=== PATIENT | male | born 1980 | race Caucasian/White ===

== ENCOUNTER 2017-11-27 11:35 | Day surgery (SDC) | payer MEDICARE, OTHER ==
[2017-11-27 14:03] LABS: BASO # 0.1 10^3/uL (0.0-0.2); BASO % 0.6 % (0.0-1.0); EOS % 0.4 % (0.0-3.0); HEMATOCRIT 45.1 % (42.0-52.0); HEMOGLOBIN 15.6 g/dl (13.5-17.5); IMMATURE GRANULOCYTE % 0.3 % (0-3.0); LYMPH # 1.7 10^3/uL (1.5-4.5); LYMPH % 19.2 % (24.0-44.0); MEAN CORPUSCULAR HEMOGLOBIN 29.7 pg (27.0-33.0); MEAN CORPUSCULAR HGB CONC 34.6 g/dl (32.0-36.5); MEAN CORPUSCULAR VOLUME 85.7 fl (80.0-96.0); MONO # 0.6 10^3/uL (0.0-0.8); NEUTROPHILS # 6.5 10^3/uL (1.8-7.7); NEUTROPHILS % 72.5 % (36.0-66.0); PLATELET COUNT, AUTOMATED 180 10^3/uL (150-450); RED BLOOD COUNT 5.26 10^6/uL (4.30-6.10); RED CELL DISTRIBUTION WIDTH 13.2 % (11.5-14.5); WHITE BLOOD COUNT 8.9 10^3/uL (4.0-10.0)
[2017-11-27] MEDS: NS 1,000 ML IV ×3 (14:06)
[2017-11-27 14:13] LABS: INR 0.96; PROTHROMBIN TIME 12.8 SECONDS (12.4-14.5)
[2017-11-27 14:14] LABS: PARTIAL THROMBOPLASTIN TIME 26.1 SECONDS (26.8-37.9)
[2017-11-27 14:37] LABS: ANION GAP 4 MEQ/L (8-16); BLOOD UREA NITROGEN 13 MG/DL (7-18); C REACTIVE PROTEIN QUANTITATIV < 0.30 MG/DL (0.00-0.30); CALCIUM LEVEL 9.7 MG/DL (8.5-10.1); CARBON DIOXIDE LEVEL 30 MEQ/L (21-32); CHLORIDE LEVEL 106 MEQ/L (98-107); CREATININE FOR GFR 0.93 MG/DL (0.70-1.30); GLOMERULAR FILTRATION RATE > 60.0 (>60); GLUCOSE, FASTING 90 MG/DL (70-100); POTASSIUM SERUM 3.6 MEQ/L (3.5-5.1); SODIUM LEVEL 140 MEQ/L (136-145)
[2017-11-27] MEDS: CEFAZOLIN SOD 1 GM in APPROPRIATE DILUENT 1 EA IV ×3 (15:14)
[2017-11-27] MEDS ORDERED: LIDOCAINE 2% INJ 100 MG/5 ML SDV (FOR ANES.) As Ordered ×3 (19:48)
[2017-11-27] MEDS ORDERED: MIDAZOLAM INJ 2 MG/2 ML VIAL (J2250) As Ordered ×3 (19:48)
[2017-11-27] MEDS ORDERED: PROPOFOL 200 MG/20 ML VIAL As Ordered ×12 (19:48→20:51)
[2017-11-27] MEDS ORDERED: fentaNYL 100 MCG/2 ML INJECTION (J3010) As Ordered ×3 (19:49)
[2017-11-27] MEDS: LIDOCAINE 2% MDV 20 ML VIAL As Ordered ×3 (20:46)
[2017-11-27] MEDS: BUPIVACAINE HCL 0.5% 30 ML VIAL As Ordered ×3 (20:46)
[2017-11-27] MEDS: GENTAMICIN SULF INJ 80MG/2ML VIAL (J1580) As Ordered ×3 (21:00)
[2017-11-27] MEDS ORDERED: ONDANSETRON 4MG/2ML VIAL (J2405) IV ×3 (22:00)
[2017-11-27] MEDS ORDERED: LR 1,000 ML IV ×3 (22:00)
[2017-11-27] MEDS ORDERED: fentaNYL 100 MCG/2 ML INJECTION (J3010) IV ×3 (22:00)
[2017-11-27] MEDS ORDERED: METOCLOPRAMIDE INJ 10MG/2ML VIAL (J2765) IV ×3 (22:00)
[2017-11-27] MEDS: PERCOCET 5MG/325MG TAB PO ×3 (22:15)
== END 2017-11-27 22:35 | disposition home or self-care (01) ==
LOC: M SDC 22:35 → M ED 11:35 → M SDC 19:30
DX: S91.301A Unspecified open wound, right foot, initial encounter (principal); Y23 Rifle, shotgun and larger firearm discharge, undetermined intent; W33.02XA Accidental discharge of hunting rifle, initial encounter; Z88.2 Allergy status to sulfonamides; F32.9 Major depressive disorder, single episode, unspecified; R79.1 Abnormal coagulation profile; Y92.89 Other specified places as the place of occurrence of the external cause; Y99.9 Unspecified external cause status; Y93.89 Activity, other specified
CPT/HCPCS: 28192

== ENCOUNTER → 2017-11-27 | Outpatient (CLI) | payer MEDICARE, OTHER | LOC: M LRY 10:41 | DX: M79.671 Pain in right foot (principal); S90.851A Superficial foreign body, right foot, initial encounter; W34.010A Accidental discharge of airgun, initial encounter; X58.XXXA Exposure to other specified factors, initial encounter; Y92.9 Unspecified place or not applicable; Y93.9 Activity, unspecified | CPT/HCPCS: 73630 ==

== ENCOUNTER 2019-05-16 04:20 | Emergency (ER) | payer MEDICARE, OTHER ==
[~2019-05-16] VITALS: Ht 190.5 cm; Wt 100.0 kg
[~2019-05-16 04:20] MED LIST: ADDE20CA3 PO; AMBI6.25 PO; CLON0.5T8 PO; EFFE150C2 PO; HYDR-3719 PO; PRAZ1CAP PO; REQU1TAB14 PO; REQU1TAB16 PO; ZOLP10TA2 PO
[2019-05-16] MEDS ORDERED: CLAR10CA3 PO (04:25)
[2019-05-16 04:59] LABS: BASO # 0.1 10^3/uL (0.0-0.2); BASO % 0.5 % (0.0-1.0); EOS # 0.6 10^3/uL (0.0-0.5); EOS % 5.6 % (0.0-3.0); HEMATOCRIT 44.2 % (42.0-52.0); HEMOGLOBIN 14.9 g/dl (13.5-17.5); LYMPH % 28.7 % (24.0-44.0); MEAN CORPUSCULAR HEMOGLOBIN 29.6 pg (27.0-33.0); MEAN CORPUSCULAR HGB CONC 33.7 g/dl (32.0-36.5); MEAN CORPUSCULAR VOLUME 87.9 fl (80.0-96.0); MONO # 0.8 10^3/uL (0.0-0.8); MONO % 7.2 % (0.0-5.0); NEUTROPHILS % 57.6 % (36.0-66.0); PLATELET COUNT, AUTOMATED 181 10^3/uL (150-450); RED BLOOD COUNT 5.03 10^6/uL (4.30-6.10); WHITE BLOOD COUNT 10.5 10^3/uL (4.0-10.0)
[2019-05-16 05:19] LABS: BLOOD UREA NITROGEN 15 MG/DL (7-18); CALCIUM LEVEL 9.1 MG/DL (8.5-10.1); CARBON DIOXIDE LEVEL 31 MEQ/L (21-32); CHLORIDE LEVEL 105 MEQ/L (98-107); CREATININE FOR GFR 0.95 MG/DL (0.70-1.30); GLOMERULAR FILTRATION RATE > 60.0 (>60); GLUCOSE, FASTING 64 MG/DL (70-100); POTASSIUM SERUM 3.9 MEQ/L (3.5-5.1); SODIUM LEVEL 143 MEQ/L (136-145)
[2019-05-16] MEDS ORDERED: diphenhydrAMINE INJ 50MG/ML VIAL (J1200) IV STA (06:16)
[2019-05-16] MEDS ORDERED: PRED20TA PO (06:21)
[2019-05-16] MEDS ORDERED: BENA25TA5 PO (06:22)
[2019-05-16] MEDS ORDERED: BENA25CA4 PO (06:22)
[2019-05-16] MEDS ORDERED: PEPC1TAB5 PO (06:23)
[2019-05-16] MEDS ORDERED: methylPREDNISolone INJ 125 MG/2 ML VIAL (J2930) IV ONE (06:30)
[2019-05-16] MEDS ORDERED: FAMOTIDINE IV BAG 20 MG in IV 1 EA IV ONE (06:30)
[2019-05-16 07:00] VITALS: BP 128/88
== END 2019-05-16 07:08 | disposition home or self-care (01) ==
LOC: M ED 04:20
DX: S40.262A Insect bite (nonvenomous) of left shoulder, initial encounter (principal); T78.40XA Allergy, unspecified, initial encounter; W57.XXXA Bitten or stung by nonvenomous insect and other nonvenomous arthropods, initial encounter; Y92.9 Unspecified place or not applicable; Y93.9 Activity, unspecified; Y99.9 Unspecified external cause status; F43.10 Post-traumatic stress disorder, unspecified; F41.9 Anxiety disorder, unspecified; F32.9 Major depressive disorder, single episode, unspecified; K21.9 Gastro-esophageal reflux disease without esophagitis; F17.210 Nicotine dependence, cigarettes, uncomplicated; Z79.899 Other long term (current) drug therapy; Z88.2 Allergy status to sulfonamides; Z91.89 Other specified personal risk factors, not elsewhere classified
CPT/HCPCS: 80048; 85025; 94760; 96365; 96375; 99284; J1200; J2930

== ENCOUNTER 2019-06-23 08:09 | Emergency (ER) | payer OTHER, MEDICARE ==
[~2019-06-23] VITALS: Ht 190.5 cm; Wt 104.0 kg
[~2019-06-23 08:09] MED LIST changes: +BENA25CA4 PO; +BENA25TA5 PO; +CLAR10CA3 PO; +PEPC1TAB5 PO; +PRED20TA PO
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
[2019-06-23 09:53] VITALS: BP 126/70
== END 2019-06-23 09:55 | disposition home or self-care (01) ==
LOC: M ED 08:09
DX: S60.011A Contusion of right thumb without damage to nail, initial encounter (principal); S60.111A Contusion of right thumb with damage to nail, initial encounter; W23.0XXA Caught, crushed, jammed, or pinched between moving objects, initial encounter; Y92.099 Unspecified place in other non-institutional residence as the place of occurrence of the external cause; Y93.9 Activity, unspecified; Y99.9 Unspecified external cause status; F12.10 Cannabis abuse, uncomplicated; Z79.899 Other long term (current) drug therapy; Z88.2 Allergy status to sulfonamides; Z91.89 Other specified personal risk factors, not elsewhere classified

== ENCOUNTER 2019-07-07 10:48 | Day surgery (SDC) | payer OTHER, MEDICARE ==
[~2019-07-07] VITALS: Ht 190.5 cm; Wt 101.2 kg
[~2019-07-07 10:48] MED LIST changes: +CLON0.5T2 PO; -CLON0.5T8 PO; +LIDOCAINE 2% INJ 100 MG/5 ML SDV (FOR ANES.) As Ordered ONE; +PROPOFOL 200 MG/20 ML VIAL As Ordered ONE
[2019-07-07] MEDS: NS 1,000 ML IV ONE (11:20)
[2019-07-07] MEDS ORDERED: PROPOFOL 200 MG/20 ML VIAL As Ordered ONE ×2 (12:20→12:32)
--- NOTE | 2019-07-07 12:43 | ROOR ---
Patient Name: Darryl León Procedure Date: 07/07/2019 12:09 PM Date of : 1980 Age: 38 Room: [facility] Gender: Male Note Status: Finalized Procedure: Upper Endoscopy + Biopsies Indications: Epigastric abdominal pain, Diarrhea, Nausea with vomiting Providers: Handy Valadez MD Referring MD: Moises Guzman Md Requesting Provider: Medicines: Monitored Anesthesia Care Complications: No immediate complications. Procedure: Pre-Anesthesia Assessment: - The heart rate, respiratory rate, oxygen saturations, blood pressure, adequacy of pulmonary ventilation, and response to care were monitored throughout the procedure. The Endoscope was introduced through the mouth, and advanced to the second part of duodenum. The upper GI endoscopy was accomplished without difficulty. The patient tolerated the procedure well. Findings: The Z-line was regular and was found 38 cm from the incisors. Multiple biopsies were obtained with cold forceps for evaluation to rule out Rebolledo's Esophagus randomly at the gastroesophageal junction. A small hiatal hernia was present. Diffuse mildly erythematous mucosa without bleeding was found in the stomach. Biopsies were taken with a cold forceps for Helicobacter pylori testing. The exam of the duodenum was otherwise normal. Biopsies for histology were taken with a cold forceps in the first portion of the duodenum for evaluation of celiac disease. The exam was otherwise without abnormality. Impression: - Z-line regular, 38 cm from the incisors. - Small hiatal hernia. - Erythematous mucosa in the stomach. Biopsied. - The examination was otherwise normal. - Multiple biopsies were obtained at the gastroesophageal junction. - Biopsies were taken with a cold forceps for evaluation of celiac disease. - The examination was otherwise normal. Recommendation: - Patient has a contact number available for emergencies. The signs and symptoms of potential delayed complications were discussed with the patient. Return to normal activities tomorrow. Written discharge instructions were provided to the patient. - High fiber diet. - Discharge patient to home. - Continue present medications. - Await pathology results. - Telephone GI clinic for pathology results in 1 week. - Return to referring physician. - The findings and recommendations were discussed with the patient's family. Handy Valadez MD Handy Valadez MD 07/07/2019 12:42:29 PM Electronically signed by Handy Valadez MD Number of Addenda: 0 Note Initiated On: 07/07/2019 12:09 PM Estimated Blood Loss: Estimated blood loss: none.
--- NOTE | 2019-07-07 12:45 | ROOR ---
Patient Name: Darryl León Procedure Date: 07/07/2019 12:10 PM Date of : 1980 Age: 38 Room: [facility] Gender: Male Note Status: Finalized Procedure: Total Colonoscopy to Cecum + ileoscopy + Bx Indications: Lower abdominal pain, Clinically significant diarrhea of unexplained origin Providers: Handy Valadez MD Referring MD: Moises Guzman Md Requesting Provider: Medicines: Monitored Anesthesia Care Complications: No immediate complications. Procedure: Pre-Anesthesia Assessment: - The heart rate, respiratory rate, oxygen saturations, blood pressure, adequacy of pulmonary ventilation, and response to care were monitored throughout the procedure. The Colonoscope was introduced through the anus and advanced to the terminal ileum, with identification of the appendiceal orifice and IC valve. The colonoscopy was performed without difficulty. The patient tolerated the procedure well. The quality of the bowel preparation was excellent. Findings: The perianal and digital rectal examinations were normal. Non-bleeding internal hemorrhoids were found during retroflexion. The hemorrhoids were small and Grade I (internal hemorrhoids that do not prolapse). No other significant abnormalities were identified in a careful examination of the remainder of the colon. Biopsies for histology were taken with a cold forceps from the ascending colon, transverse colon, descending colon and rectosigmoid colon for evaluation of microscopic colitis. The terminal ileum appeared normal. Impression: - Non-bleeding internal hemorrhoids. - The examined portion of the ileum was normal. - Biopsies were taken with a cold forceps from the ascending colon, transverse colon, descending colon and rectosigmoid colon for evaluation of microscopic colitis. - The exam was otherwise normal to the cecum. Recommendation: - Patient has a contact number available for emergencies. The signs and symptoms of potential delayed complications were discussed with the patient. Return to normal activities tomorrow. Written discharge instructions were provided to the patient. - High fiber diet. - Discharge patient to home. - Continue present medications. - Await pathology results. - Telephone GI clinic for pathology results in 1 week. - Repeat colonoscopy at age 50 for screening purposes. - Return to referring physician. - The findings and recommendations were discussed with the patient's family. Handy Valadez MD Handy Valadez MD 07/07/2019 12:45:12 PM Electronically signed by Handy Valadez MD Number of Addenda: 0 Note Initiated On: 07/07/2019 12:10 PM Estimated Blood Loss: Estimated blood loss: none.
[2019-07-07 13:00] VITALS: BP 134/87
== END 2019-07-07 13:10 | disposition home or self-care (01) ==
LOC: M OPP 10:48
PROVIDERS: ATTEND Internal Medicine Gastroenterology
DX: K64.0 First degree hemorrhoids (principal); K44.9 Diaphragmatic hernia without obstruction or gangrene; R19.7 Diarrhea, unspecified; R10.30 Lower abdominal pain, unspecified; R11.2 Nausea with vomiting, unspecified

== ENCOUNTER 2020-02-10 17:56 | Emergency (ER) | payer MEDICARE, OTHER ==
[~2020-02-10] VITALS: Ht 190.5 cm; Wt 105.7 kg
[~2020-02-10 17:56] MED LIST changes: -LIDOCAINE 2% INJ 100 MG/5 ML SDV (FOR ANES.) As Ordered ONE; -PROPOFOL 200 MG/20 ML VIAL As Ordered ONE
[2020-02-10] MEDS ORDERED: ISOVUE-370 76% 100ML VIAL As Ordered ONE (19:03)
[2020-02-10 19:05] LABS: BASO # 0.1 10^3/uL (0.0-0.2); BASO % 0.8 % (0.0-1.0); EOS # 0.1 10^3/uL (0.0-0.5); EOS % 1.4 % (0.0-3.0); HEMOGLOBIN 14.4 g/dl (13.5-17.5); LYMPH # 1.9 10^3/uL (1.5-5.0); LYMPH % 20.6 % (24.0-44.0); MEAN CORPUSCULAR HEMOGLOBIN 29.3 pg (27.0-33.0); MEAN CORPUSCULAR HGB CONC 34.3 g/dl (32.0-36.5); MEAN CORPUSCULAR VOLUME 85.5 fl (80.0-96.0); MONO # 0.5 10^3/uL (0.0-0.8); MONO % 5.9 % (0.0-5.0); NEUTROPHILS # 6.5 10^3/uL (1.5-8.5); NEUTROPHILS % 70.9 % (36.0-66.0); PLATELET COUNT, AUTOMATED 178 10^3/uL (150-450); RED BLOOD COUNT 4.91 10^6/uL (4.30-6.10); WHITE BLOOD COUNT 9.1 10^3/uL (4.0-10.0)
[2020-02-10 19:28] LABS: ALBUMIN 3.7 GM/DL (3.2-5.2); BILIRUBIN,DIRECT 0.1 MG/DL (0.0-0.2); BILIRUBIN,TOTAL 0.3 MG/DL (0.2-1.0); TOTAL PROTEIN 6.8 GM/DL (6.4-8.2)
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
[2020-02-10] MEDS ORDERED: BACITRACIN OINTMENT 30GM TUBE TOP STA (19:54)
[2020-02-10 20:05] VITALS: BP 134/85
== END 2020-02-10 20:15 | disposition home or self-care (01) ==
LOC: M ED 17:56
DX: S30.1XXA Contusion of abdominal wall, initial encounter (principal); T21.22XA Burn of second degree of abdominal wall, initial encounter; W22.8XXA Striking against or struck by other objects, initial encounter; Y92.9 Unspecified place or not applicable; Y93.9 Activity, unspecified; Y99.9 Unspecified external cause status; Z87.820 Personal history of traumatic brain injury; M51.9 Unspecified thoracic, thoracolumbar and lumbosacral intervertebral disc disorder; Z79.899 Other long term (current) drug therapy; Z88.2 Allergy status to sulfonamides; Z91.89 Other specified personal risk factors, not elsewhere classified
CPT/HCPCS: 74177; 80047; 80076; 81001; 83690; 85025; 99284; Q9967

== ENCOUNTER → 2023-05-16 | Outpatient (CLI) | payer OTHER ==
[~2023-05-16] MED LIST changes: +GLUCAGON INJ 1MG VIAL As Ordered ONE; +ISOVUE-370 76% 100ML VIAL As Ordered ONE; +NEULUMEX 0.1% SUSPENSION 450ML BOTTLE (FORMERLY VOLUMEN) As Ordered ONE
== END ==
LOC: M RAD 07:49
PROVIDERS: ATTEND Internal Medicine Gastroenterology
DX: D51.9 Vitamin B12 deficiency anemia, unspecified (principal); R19.7 Diarrhea, unspecified; R63.4 Abnormal weight loss
CPT/HCPCS: 74177; J1610; Q9967

== ENCOUNTER 2023-07-02 09:41 | Day surgery (SDC) | payer OTHER ==
[~2023-07-02] VITALS: Ht 190.5 cm; Wt 100.7 kg
[~2023-07-02 09:41] MED LIST changes: +CREO6000 PO; +CYAN500T14 PO; -GLUCAGON INJ 1MG VIAL As Ordered ONE; +HYDR-4431 PO; -ISOVUE-370 76% 100ML VIAL As Ordered ONE; +MELO15TA28 PO; -NEULUMEX 0.1% SUSPENSION 450ML BOTTLE (FORMERLY VOLUMEN) As Ordered ONE; +NS 1,000 ML IV ONE; +OMEP40CA4 PO; +ROPI5TAB19 PO; +SPIR1CAP INH; +VENTAER INH
[2023-07-02] MEDS ORDERED: propofoL 500 MG/50 ML VIAL As Ordered ONE (11:00)
[2023-07-02 11:33] VITALS: TEMP 97.1
[2023-07-02 11:55] VITALS: BP 141/68; O2SAT 99
== END 2023-07-02 12:30 | disposition home or self-care (01) ==
LOC: M OPP 09:41
PROVIDERS: ATTEND Internal Medicine Gastroenterology
DX: R19.4 Change in bowel habit (principal); G47.30 Sleep apnea, unspecified; K58.0 Irritable bowel syndrome with diarrhea; F41.8 Other specified anxiety disorders; J45.909 Unspecified asthma, uncomplicated; Z88.2 Allergy status to sulfonamides; Z79.899 Other long term (current) drug therapy; Z79.51 Long term (current) use of inhaled steroids; Z79.891 Long term (current) use of opiate analgesic